=== PATIENT | male | born 1940 | race African-American/Black ===

== ENCOUNTER 2018-03-01 09:36 | Inpatient (IN) | payer MEDICARE, OTHER ==
[2018-03-01] VITALS (7 sets, daily range): BP systolic 113–147; BP diastolic 55–77
[~2018-03-01] VITALS: Ht 190.5 cm; Wt 105.8 kg
[2018-03-01 10:31] LABS: Basophils # (auto) 0 uL; Basophils % (auto) 0.5 % (0.0-2.0); Eosinophils # (auto) 0.1 uL; Eosinophils % (auto) 1.6 % (0.0-7.0); Hematocrit 36.9 % (41.0-53.0); Hemoglobin 12.1 g/dL (13.5-17.5); Lymphocytes # (auto) 0.9 uL; Mean Corpuscular Hemoglobin 30.9 pg (28.0-32.0); Mean Corpuscular Hgb Conc. 32.8 g/dL (32.0-36.0); Mean Corpuscular Volume 93.9 fL (80.0-100.0); Monocytes # (auto) 0.7 uL; Monocytes % (auto) 9.2 % (0.0-12.0); Neutrophils # (auto) 6.2 uL; Neutrophils % (auto) 77.7 % (37.0-80.0); Nucleated Red Blood Cells % 0.1 %; Platelet Count (auto) 177 10^3/uL (140-450); Red Blood Cells 3.93 10^6/uL (4.5-5.90); Red Cell Distribution Width 15.7 % (11.8-14.3); White Blood Cell 7.9 10^3/uL (4.4-10.8)
[2018-03-01 10:58] LABS: Albumin 3.6 g/dL (3.4-5.0); BUN/Creatinine Ratio 4.5; Bilirubin, Total 0.7 mg/dL (0.2-1.0); Calcium 8.7 mg/dL (8.5-10.1); Magnesium 2.4 mg/dL (1.6-2.6); Potassium 3.4 mmol/L (3.5-5.1); Total Protein 8.1 g/dL (6.4-8.2)
[2018-03-01] MEDS ORDERED: PIPERACILLIN-TAZOB 2.25GM 50 ML IV ONE (13:15)
[2018-03-01] MEDS ORDERED: VANCOMYCIN PER PHARMACY 0 MG IV SCH (13:15)
[2018-03-01] MEDS ORDERED: cefTRIAXone 1GM/10ml IVPUSH 10 ML IV ONE (13:15)
[2018-03-01] MEDS ORDERED: MORPHINE SULFATE 8mg/ml INJ SDV IV PRN ×2 (13:15)
[2018-03-01] MEDS ORDERED: HYDROcodone-ACET 5/325MG TAB PO PRN (13:15)
[2018-03-01] MEDS ORDERED: AZITHROMYCIN 500MG/ 250ML 250 ML IV ONE (13:15)
[2018-03-01] MEDS ORDERED: TEMAZEPAM 15 MG CAP PO PRN (13:15)
[2018-03-01] MEDS ORDERED: ALBUTEROL SULF 2.5 MG/0.5ML(0.5%) NEB SOLN NEB PRN (13:15)
[2018-03-01] MEDS ORDERED: PROMETHAZINE HCL 25 MG/ML 1ML IV PRN (13:15)
[2018-03-01] MEDS ORDERED: ACETAMINOPHEN 500 MG TAB PO PRN (13:15)
[2018-03-01] MEDS ORDERED: NITROGLYCERIN 0.4 MG SL TAB SL PRN (13:15)
[2018-03-01] MEDS ORDERED: LORazepam 0.5 MG TAB PO PRN (13:15)
[2018-03-01] MEDS ORDERED: ENALAPRIL MALEATE 2.5 MG TAB PO ONE (13:45)
[2018-03-01] MEDS ORDERED: ASPirin 81 mg TAB PO ONE (13:45)
[2018-03-01] MEDS ORDERED: CARVEDILOL 3.125 MG TAB PO ONE (13:45)
[2018-03-01] MEDS: ENOXAPARIN SOD 30 MG/0.3 ML SYRINGE SC SCH (14:02)
[2018-03-01] MEDS: NITROGLYCERIN 0.2MG/HR TOPICAL PATCH TD SCH (14:03)
[2018-03-01 14:21] LABS: Folate (Folic Acid) 18.9 ng/mL (5.38-24)
[2018-03-01] MEDS ORDERED: FUROSEMIDE 40 MG/4 ML VIAL IV ONE (14:45)
[2018-03-01] MEDS: SODIUM CHLOR 0.9% PF (SALINE LOCK) 10ML VIAL/SYR IV SCH ×2 (15:07→21:35)
[2018-03-01] MEDS ORDERED: VANCOMYCIN 1GM/250ML 250 ML IV ONE (16:30)
[2018-03-01] MEDS: AZITHROMYCIN 500MG/ 250ML 250 ML IV SCH (17:00)
[2018-03-01] MEDS: IPRATROPIUM BROM 0.5 MG/2.5ML INH SOL NEB SCH (18:39)
[2018-03-01] MEDS: ALBUTEROL SULF 2.5 MG/0.5ML(0.5%) NEB SOLN NEB SCH (18:39)
[2018-03-01] MEDS: ACCU-CHEK COMFORT CURVE STRIP VI SCH ×2 (19:03→21:35)
[2018-03-01] MEDS: InsuLIN REG 1unit/0.01ml Soln (100units/ml) SC SCH ×2 (19:03→21:58)
[2018-03-01] MEDS: PIPERACILLIN-TAZOB 2.25GM 50 ML IV SCH (21:35)
[2018-03-01] MEDS: DEXTROSE (50%) 50ML SYRG IV PRN (21:59)
[2018-03-01] MEDS: CARVEDILOL 3.125 MG TAB PO SCH (22:00)
[2018-03-01] MEDS ORDERED: CARVEDILOL 3.125 MG TAB PO SCH (22:00)
[2018-03-02] MEDS: IPRATROPIUM BROM 0.5 MG/2.5ML INH SOL NEB SCH ×4 (00:58→18:30)
[2018-03-02] MEDS: ALBUTEROL SULF 2.5 MG/0.5ML(0.5%) NEB SOLN NEB SCH ×4 (00:58→18:31)
[2018-03-02 05:02] VITALS: BP 119/67
[2018-03-02] MEDS: FUROSEMIDE 40 MG/4 ML VIAL IV SCH ×2 (05:36→17:44)
[2018-03-02] MEDS: SODIUM CHLOR 0.9% PF (SALINE LOCK) 10ML VIAL/SYR IV SCH ×3 (05:37→22:00)
[2018-03-02] MEDS: InsuLIN REG 1unit/0.01ml Soln (100units/ml) SC SCH ×4 (06:38→22:00)
[2018-03-02 06:39] LABS: Basophils # (auto) 0.1 uL; Basophils % (auto) 0.7 % (0.0-2.0); Eosinophils # (auto) 0.2 uL; Eosinophils % (auto) 2.3 % (0.0-7.0); Hematocrit 33.5 % (41.0-53.0); Hemoglobin 11.2 g/dL (13.5-17.5); Lymphocytes # (auto) 1.7 uL; Lymphocytes % (auto) 22.4 % (10.0-50.0); Mean Corpuscular Hemoglobin 31.7 pg (28.0-32.0); Mean Corpuscular Hgb Conc. 33.5 g/dL (32.0-36.0); Mean Corpuscular Volume 94.7 fL (80.0-100.0); Monocytes # (auto) 0.8 uL; Neutrophils # (auto) 4.7 uL; Neutrophils % (auto) 63.6 % (37.0-80.0); Nucleated Red Blood Cells % 0.2 %; Platelet Count (auto) 163 10^3/uL (140-450); Red Blood Cells 3.53 10^6/uL (4.5-5.90); Red Cell Distribution Width 15.2 % (11.8-14.3); White Blood Cell 7.4 10^3/uL (4.4-10.8)
[2018-03-02] MEDS: DEXTROSE (50%) 50ML SYRG IV PRN (06:39)
[2018-03-02] MEDS: ACCU-CHEK COMFORT CURVE STRIP VI SCH ×4 (06:39→22:30)
[2018-03-02 06:53] LABS: BUN/Creatinine Ratio 4.3; Bilirubin, Total 0.5 mg/dL (0.2-1.0); Calcium 8.7 mg/dL (8.5-10.1); Potassium 3.7 mmol/L (3.5-5.1); Total Protein 6.8 g/dL (6.4-8.2)
[2018-03-02 08:47] VITALS: BP 150/72
[2018-03-02] MEDS ORDERED: VANCOMYCIN 750 MG in D5W 5% 250 ML IV ONE (10:00)
[2018-03-02] MEDS ORDERED: ENALAPRIL MALEATE 2.5 MG TAB PO SCH (10:00)
[2018-03-02] MEDS: NITROGLYCERIN 0.2MG/HR TOPICAL PATCH TD SCH (10:00)
[2018-03-02] MEDS: PIPERACILLIN-TAZOB 2.25GM 50 ML IV SCH ×2 (10:00→23:36)
[2018-03-02] MEDS ORDERED: ASPirin 81 mg TAB PO SCH (10:00)
[2018-03-02] MEDS: ENOXAPARIN SOD 30 MG/0.3 ML SYRINGE SC SCH (10:19)
[2018-03-02] MEDS: ENALAPRIL MALEATE 2.5 MG TAB PO SCH (10:21)
[2018-03-02] MEDS: ASPirin 81 mg TAB PO SCH (10:21)
[2018-03-02] MEDS: CARVEDILOL 3.125 MG TAB PO SCH ×2 (10:21→22:29)
[2018-03-02] MEDS: AZITHROMYCIN 500MG/ 250ML 250 ML IV SCH (10:22)
[2018-03-02 12:30] VITALS: BP 102/42
[2018-03-02 17:02] VITALS: BP 163/78
[2018-03-02 22:00] VITALS: BP 149/68
[2018-03-03] MEDS: IPRATROPIUM BROM 0.5 MG/2.5ML INH SOL NEB SCH ×4 (00:28→20:10)
[2018-03-03] MEDS: ALBUTEROL SULF 2.5 MG/0.5ML(0.5%) NEB SOLN NEB SCH ×4 (00:28→20:10)
[2018-03-03 04:47] VITALS: BP 99/54
[2018-03-03 05:28] LABS: Basophils # (auto) 0.1 uL; Basophils % (auto) 0.7 % (0.0-2.0); Eosinophils # (auto) 0.2 uL; Eosinophils % (auto) 2.7 % (0.0-7.0); Hematocrit 32.6 % (41.0-53.0); Lymphocytes # (auto) 1.7 uL; Lymphocytes % (auto) 18.1 % (10.0-50.0); Mean Corpuscular Hemoglobin 31.6 pg (28.0-32.0); Mean Corpuscular Hgb Conc. 33.7 g/dL (32.0-36.0); Mean Corpuscular Volume 93.7 fL (80.0-100.0); Monocytes # (auto) 0.7 uL; Monocytes % (auto) 8.2 % (0.0-12.0); Neutrophils # (auto) 6.4 uL; Neutrophils % (auto) 70.3 % (37.0-80.0); Platelet Count (auto) 187 10^3/uL (140-450); Red Blood Cells 3.48 10^6/uL (4.5-5.90); Red Cell Distribution Width 15.2 % (11.8-14.3); White Blood Cell 9.1 10^3/uL (4.4-10.8)
[2018-03-03] MEDS: SODIUM CHLOR 0.9% PF (SALINE LOCK) 10ML VIAL/SYR IV SCH ×3 (05:41→22:00)
[2018-03-03] MEDS: FUROSEMIDE 40 MG/4 ML VIAL IV SCH ×2 (05:41→17:58)
[2018-03-03 05:46] LABS: INR 1.01 (0.9-1.15); Partial Thromboplastin Time 35.6 sec (23.78-33.04); Prothrombin Time 10.8 sec (9.27-12.13)
[2018-03-03 05:47] LABS: Calcium 8.3 mg/dL (8.5-10.1); Magnesium 2.5 mg/dL (1.6-2.6)
[2018-03-03] MEDS: InsuLIN REG 1unit/0.01ml Soln (100units/ml) SC SCH ×4 (06:07→22:30)
[2018-03-03] MEDS: ACCU-CHEK COMFORT CURVE STRIP VI SCH ×4 (06:07→22:00)
[2018-03-03 08:23] VITALS: BP 103/45
[2018-03-03] MEDS: NITROGLYCERIN 0.2MG/HR TOPICAL PATCH TD SCH (10:00)
[2018-03-03] MEDS: ENALAPRIL MALEATE 2.5 MG TAB PO SCH (10:00)
[2018-03-03] MEDS: PIPERACILLIN-TAZOB 2.25GM 50 ML IV SCH ×2 (11:31→22:00)
[2018-03-03] MEDS: ASPirin 81 mg TAB PO SCH (11:36)
[2018-03-03] MEDS: CARVEDILOL 3.125 MG TAB PO SCH ×2 (11:37→22:00)
[2018-03-03] MEDS: ENOXAPARIN SOD 30 MG/0.3 ML SYRINGE SC SCH (11:37)
[2018-03-03 11:49] VITALS: BP 106/67
[2018-03-03] MEDS ORDERED: VANCOMYCIN 750 MG in D5W 5% 250 ML IV ONE ×2 (12:00→18:00)
[2018-03-03] MEDS: AZITHROMYCIN 500MG/ 250ML 250 ML IV SCH (13:38)
[2018-03-03 16:59] VITALS: BP 107/44
[2018-03-03 22:00] VITALS: BP 156/79
[2018-03-04] MEDS: ALBUTEROL SULF 2.5 MG/0.5ML(0.5%) NEB SOLN NEB SCH ×3 (00:54→18:33)
[2018-03-04] MEDS: IPRATROPIUM BROM 0.5 MG/2.5ML INH SOL NEB SCH ×3 (00:54→18:34)
[2018-03-04 05:00] VITALS: BP 149/71
[2018-03-04 05:55] LABS: Basophils # (auto) 0.1 uL; Basophils % (auto) 0.8 % (0.0-2.0); Eosinophils # (auto) 0.3 uL; Eosinophils % (auto) 3.4 % (0.0-7.0); Hematocrit 33.9 % (41.0-53.0); Hemoglobin 11.4 g/dL (13.5-17.5); Lymphocytes # (auto) 1.4 uL; Lymphocytes % (auto) 15.6 % (10.0-50.0); Mean Corpuscular Hemoglobin 31.7 pg (28.0-32.0); Mean Corpuscular Hgb Conc. 33.5 g/dL (32.0-36.0); Mean Corpuscular Volume 94.6 fL (80.0-100.0); Monocytes # (auto) 0.7 uL; Monocytes % (auto) 7.9 % (0.0-12.0); Neutrophils # (auto) 6.5 uL; Neutrophils % (auto) 72.3 % (37.0-80.0); Platelet Count (auto) 180 10^3/uL (140-450); Red Blood Cells 3.59 10^6/uL (4.5-5.90); Red Cell Distribution Width 14.5 % (11.8-14.3)
[2018-03-04] MEDS: FUROSEMIDE 40 MG/4 ML VIAL IV SCH ×2 (06:00→17:32)
[2018-03-04] MEDS: SODIUM CHLOR 0.9% PF (SALINE LOCK) 10ML VIAL/SYR IV SCH ×2 (06:00→14:36)
[2018-03-04 06:07] LABS: BUN/Creatinine Ratio 4.8; Calcium 8.2 mg/dL (8.5-10.1); Potassium 3.7 mmol/L (3.5-5.1)
[2018-03-04] MEDS: InsuLIN REG 1unit/0.01ml Soln (100units/ml) SC SCH ×3 (06:59→17:33)
[2018-03-04] MEDS: ACCU-CHEK COMFORT CURVE STRIP VI SCH ×3 (07:00→17:33)
[2018-03-04 08:07] VITALS: BP 157/69
[2018-03-04] MEDS: AZITHROMYCIN 500MG/ 250ML 250 ML IV SCH (10:49)
[2018-03-04] MEDS: ENALAPRIL MALEATE 2.5 MG TAB PO SCH (10:49)
[2018-03-04] MEDS: NITROGLYCERIN 0.2MG/HR TOPICAL PATCH TD SCH (10:50)
[2018-03-04] MEDS: ASPirin 81 mg TAB PO SCH (10:50)
[2018-03-04] MEDS: CARVEDILOL 3.125 MG TAB PO SCH (10:50)
[2018-03-04] MEDS: ENOXAPARIN SOD 30 MG/0.3 ML SYRINGE SC SCH (10:51)
[2018-03-04 12:01] VITALS: BP 138/67
[2018-03-04] MEDS: PIPERACILLIN-TAZOB 2.25GM 50 ML IV SCH (12:56)
[2018-03-04 16:14] VITALS: BP 131/70
== END 2018-03-04 20:15 | disposition home or self-care (01) | DRG 871 ==
LOC: ER 09:36 → TELE 09:37 → TELE-CENTR 20:15
PROVIDERS: ADMIT Internal Medicine; ATTEND Internal Medicine Geriatric Medicine
PROC: 5A09357 Assistance with Respiratory Ventilation, Less than 24 Consecutive Hours, Continuous Positive Airway Pressure (ICD-10-PCS; principal; 2018-03-01)
PROC: 5A1D70Z Performance of Urinary Filtration, Intermittent, Less than 6 Hours Per Day (ICD-10-PCS; 2018-03-03)
DX: A41.9 Sepsis, unspecified organism (principal); G93.41 Metabolic encephalopathy; J96.01 Acute respiratory failure with hypoxia; I13.2 Hypertensive heart and chronic kidney disease with heart failure and with stage 5 chronic kidney disease, or end stage renal disease; J18.9 Pneumonia, unspecified organism; E87.2 Acidosis; E11.22 Type 2 diabetes mellitus with diabetic chronic kidney disease; J44.0 Chronic obstructive pulmonary disease with (acute) lower respiratory infection; I50.9 Heart failure, unspecified; N18.6 End stage renal disease; E66.9 Obesity, unspecified; Z95.0 Presence of cardiac pacemaker; Z99.2 Dependence on renal dialysis; Z68.29 Body mass index [BMI] 29.0-29.9, adult; Z79.82 Long term (current) use of aspirin
CPT/HCPCS: 36415; 36600; 70450; 71046; 80048; 80053; 80202; 82550; 82607; 82746; 82805; 82962; 83036; 83605; 83735; 83880; 84443; 84484; 85025; 85610; 85652; 85730; 87040; 87077; 87186; 90935; 93005; 93306; 93886; 93970; 94640; 94660; 95819; 96365; 96367; 96372; 96375; 97163; J1815; J2543; J7060

== ENCOUNTER 2018-03-05 08:30 | Inpatient (IN) | payer OTHER ==
[~2018-03-05] VITALS: Ht 190.5 cm; Wt 99.8 kg
[2018-03-05] MEDS ORDERED: SODIUM CHLORIDE 0.9% 1,000 ML IV ONE (08:49)
[2018-03-05 09:18] VITALS: BP 134/64
[2018-03-05 09:20] LABS: Basophils # (auto) 0 uL; Basophils % (auto) 0.4 % (0.0-2.0); Eosinophils # (auto) 0.1 uL; Eosinophils % (auto) 1.4 % (0.0-7.0); Hematocrit 33.8 % (41.0-53.0); Hemoglobin 11.3 g/dL (13.5-17.5); Lymphocytes # (auto) 0.9 uL; Lymphocytes % (auto) 9.7 % (10.0-50.0); Mean Corpuscular Hemoglobin 31.6 pg (28.0-32.0); Mean Corpuscular Hgb Conc. 33.5 g/dL (32.0-36.0); Mean Corpuscular Volume 94.4 fL (80.0-100.0); Monocytes # (auto) 0.6 uL; Monocytes % (auto) 6.8 % (0.0-12.0); Neutrophils # (auto) 7.5 uL; Neutrophils % (auto) 81.7 % (37.0-80.0); Platelet Count (auto) 170 10^3/uL (140-450); Red Blood Cells 3.58 10^6/uL (4.5-5.90); Red Cell Distribution Width 14.7 % (11.8-14.3); White Blood Cell 9.2 10^3/uL (4.4-10.8)
[2018-03-05 09:31] LABS: INR 0.97 (0.9-1.15); Prothrombin Time 10.4 sec (9.27-12.13)
[2018-03-05 09:45] LABS: Albumin 3.2 g/dL (3.4-5.0); BUN/Creatinine Ratio 4.3; Calcium 8.4 mg/dL (8.5-10.1); Magnesium 2.2 mg/dL (1.6-2.6); Potassium 3.7 mmol/L (3.5-5.1)
[2018-03-05 09:49] LABS: Bilirubin, Total 0.6 mg/dL (0.2-1.0); Total Protein 7.8 g/dL (6.4-8.2)
[2018-03-05 09:50] LABS: Urine Bacteria NONE SEEN /hpf (None Seen); Urine Blood 1+ /uL (Negative); Urine Hyaline Cast FEW /lpf (0 - 2); Urine Specific Gravity 1.018 (1.001-1.035); Urine WBC 4 /hpf (0 - 3)
[2018-03-05 10:04] LABS: Alcohol, Urine < 3.0 mg/dL (0-5); Amphetamine Screen, Urine NEGATIVE (NEGATIVE); Barbiturate Scree,Urine NEGATIVE (NEGATIVE); Benzodiazephine Screen, Urine NEGATIVE (NEGATIVE); Cannabinoid Screen, Urine NEGATIVE (NEGATIVE); Cocaine Screen, Urine NEGATIVE (NEGATIVE); Opiate Scree,Urine NEGATIVE (NEGATIVE); Phencyclidine Screen, Urine NEGATIVE (NEGATIVE)
[2018-03-05 12:30] VITALS: BP 85/52
[2018-03-05] MEDS ORDERED: SODIUM CHLORIDE 0.9% 1,000 ML IV SCH (14:57)
[2018-03-05] MEDS ORDERED: DOCUSATE SOD 100 MG CAP PO PRN (15:00)
[2018-03-05] MEDS ORDERED: MORPHINE SULFATE 8mg/ml INJ SDV IV PRN ×2 (15:00)
[2018-03-05] MEDS ORDERED: NITROGLYCERIN 0.4 MG SL TAB SL PRN (15:00)
[2018-03-05] MEDS ORDERED: LACTULOSE 20Gm/30ML SOLN PO PRN (15:00)
[2018-03-05] MEDS ORDERED: ONDANSETRON HCL 4 MG/2 ML VIAL IV PRN (15:00)
[2018-03-05] MEDS ORDERED: HYDROcodone-ACET 5/325MG TAB PO PRN (15:00)
[2018-03-05] MEDS ORDERED: ACETAMINOPHEN 325 MG TAB PO PRN (15:00)
[2018-03-05] MEDS ORDERED: DEXTROSE (50%) 50ML SYRG IV PRN (15:15)
[2018-03-05] MEDS ORDERED: SODIUM CHL 0.9% 1000 ML BAG XX ONE (17:00)
[2018-03-05] MEDS: NOREPINEPHRINE 8 MG/250ML KIT 250 ML IV SCH (17:12)
[2018-03-05] MEDS: ACCU-CHEK COMFORT CURVE STRIP VI SCH ×2 (17:44→22:00)
[2018-03-05] MEDS: InsuLIN REG 1unit/0.01ml Soln (100units/ml) SC SCH ×2 (17:48→22:00)
[2018-03-05] MEDS: glipiZIDE 5 MG TAB PO SCH (17:48)
[2018-03-05] MEDS: SEVELAMER 800 MG TAB PO SCH (17:50)
[2018-03-05 18:16] VITALS: BP 108/56
[2018-03-05 18:52] VITALS: BP 110/56
[2018-03-05] MEDS: OMEGA PO SCH (22:00)
[2018-03-05] MEDS: AZO CRANBERRY PO SCH (22:00)
[2018-03-05] MEDS: ATORVASTATIN 20 MG TAB PO SCH (22:00)
[2018-03-06] MEDS ORDERED: TEMAZEPAM 15 MG CAP PO ONE (00:15)
[2018-03-06 02:25] VITALS: BP 151/97
[2018-03-06 04:24] VITALS: BP 118/61
[2018-03-06 06:18] VITALS: BP 96/56
[2018-03-06 06:44] LABS: Basophils # (auto) 0 uL; Basophils % (auto) 0.6 % (0.0-2.0); Eosinophils # (auto) 0.1 uL; Eosinophils % (auto) 1.5 % (0.0-7.0); Hematocrit 29.5 % (41.0-53.0); Hemoglobin 9.9 g/dL (13.5-17.5); Lymphocytes # (auto) 1.6 uL; Lymphocytes % (auto) 17.7 % (10.0-50.0); Mean Corpuscular Hemoglobin 32.1 pg (28.0-32.0); Mean Corpuscular Hgb Conc. 33.6 g/dL (32.0-36.0); Mean Corpuscular Volume 95.7 fL (80.0-100.0); Monocytes # (auto) 1.1 uL; Monocytes % (auto) 12.4 % (0.0-12.0); Neutrophils # (auto) 6.1 uL; Neutrophils % (auto) 67.8 % (37.0-80.0); Nucleated Red Blood Cells % 0.1 %; Platelet Count (auto) 166 10^3/uL (140-450); Red Blood Cells 3.08 10^6/uL (4.5-5.90); Red Cell Distribution Width 14.9 % (11.8-14.3); White Blood Cell 8.9 10^3/uL (4.4-10.8)
[2018-03-06 06:56] LABS: Albumin 2.5 g/dL (3.4-5.0); BUN/Creatinine Ratio 4.4; Potassium 4.2 mmol/L (3.5-5.1)
[2018-03-06 06:59] LABS: Bilirubin, Total 0.5 mg/dL (0.2-1.0); Total Protein 6.5 g/dL (6.4-8.2)
[2018-03-06] MEDS: ACCU-CHEK COMFORT CURVE STRIP VI SCH ×4 (07:57→23:18)
[2018-03-06] MEDS: InsuLIN REG 1unit/0.01ml Soln (100units/ml) SC SCH ×4 (07:58→23:17)
[2018-03-06] MEDS: SEVELAMER 800 MG TAB PO SCH ×3 (08:30→18:28)
[2018-03-06] MEDS: glipiZIDE 5 MG TAB PO SCH ×2 (08:30→18:28)
[2018-03-06] MEDS ORDERED: FUROSEMIDE 40 MG TAB PO SCH (10:00)
[2018-03-06] MEDS: OMEGA PO SCH ×2 (10:00→23:16)
[2018-03-06] MEDS ORDERED: amLODIPine BESYLATE 5 MG TAB PO SCH (10:00)
[2018-03-06] MEDS: AZO CRANBERRY PO SCH ×2 (10:00→23:16)
[2018-03-06] MEDS: [UNRECOGNIZED DRUG - OTHER] PO SCH (10:00)
[2018-03-06] MEDS: CLOPIDOGREL BISULFATE 75 MG TAB PO SCH (10:30)
[2018-03-06] MEDS: ASPirin-EC 81 mg tab PO SCH (10:30)
[2018-03-06] MEDS: AMIODARONE HCL 200 MG TAB PO SCH (10:30)
[2018-03-06] MEDS: FAMOTIDINE 20 MG TAB PO SCH (10:30)
[2018-03-06] MEDS: MULTIPLE VITAMIN TAB PO SCH (10:30)
[2018-03-06] MEDS: CHOLECALCIFEROL (VITD3) 1,000 UNIT TAB PO SCH (10:30)
[2018-03-06] MEDS: B-COMPLEX W/ C & FOLIC ACID(NEPHROVITE TAB) PO SCH (10:30)
[2018-03-06] MEDS ORDERED: VANCOMYCIN PER PHARMACY 0 MG IV SCH (12:30)
[2018-03-06] MEDS ORDERED: VANCOMYCIN 1GM/250ML 250 ML IV ONE (12:45)
[2018-03-06] MEDS ORDERED: EPOETIN ALFA 10,000 UNIT/1 ML VIAL IV ONE (14:45)
[2018-03-06] MEDS ORDERED: HEPARIN SODIUM (PORCINE) 5000 UNITS/ML 1ML VIAL IV ONE (14:45)
[2018-03-06] MEDS: NOREPINEPHRINE 8 MG/250ML KIT 250 ML IV SCH (18:29)
[2018-03-06 18:35] VITALS: BP 150/70
[2018-03-06] MEDS: ATORVASTATIN 20 MG TAB PO SCH (23:17)
[2018-03-07 06:34] LABS: BUN/Creatinine Ratio 4.2; Calcium 8.6 mg/dL (8.5-10.1); Magnesium 2.7 mg/dL (1.6-2.6); Potassium 3.4 mmol/L (3.5-5.1)
[2018-03-07] MEDS: glipiZIDE 5 MG TAB PO SCH (06:58)
[2018-03-07] MEDS: ACCU-CHEK COMFORT CURVE STRIP VI SCH ×2 (06:59→11:59)
[2018-03-07] MEDS: InsuLIN REG 1unit/0.01ml Soln (100units/ml) SC SCH ×2 (06:59→11:30)
[2018-03-07 08:10] VITALS: BP 147/65
[2018-03-07] MEDS: SEVELAMER 800 MG TAB PO SCH ×2 (08:41→12:00)
[2018-03-07] MEDS: B-COMPLEX W/ C & FOLIC ACID(NEPHROVITE TAB) PO SCH (10:00)
[2018-03-07] MEDS: AMIODARONE HCL 200 MG TAB PO SCH (10:00)
[2018-03-07] MEDS: [UNRECOGNIZED DRUG - OTHER] PO SCH (10:00)
[2018-03-07] MEDS: CHOLECALCIFEROL (VITD3) 1,000 UNIT TAB PO SCH (10:00)
[2018-03-07] MEDS: CLOPIDOGREL BISULFATE 75 MG TAB PO SCH (10:00)
[2018-03-07] MEDS ORDERED: AMIODARONE HCL 150 MG in D5W 5% 100 ML IV ONE (10:30)
[2018-03-07] MEDS: AZO CRANBERRY PO SCH (10:36)
[2018-03-07] MEDS: OMEGA PO SCH (10:37)
[2018-03-07] MEDS: ASPirin-EC 81 mg tab PO SCH (10:38)
[2018-03-07] MEDS: MULTIPLE VITAMIN TAB PO SCH (10:38)
[2018-03-07 10:39] VITALS: BP 142/68
[2018-03-07] MEDS: FAMOTIDINE 20 MG TAB PO SCH (10:39)
[2018-03-07 12:00] VITALS: BP 134/65
[2018-03-07] MEDS ORDERED: VANCOMYCIN 1GM/250ML 250 ML IV ONE (13:00)
[2018-03-07 13:43] VITALS: BP 100/46
== END 2018-03-07 14:24 | disposition short-term general hospital (02) | DRG 314 ==
LOC: EDBD 08:30 → ER 08:33 → OVERFLOW 08:34
PROVIDERS: ADMIT Internal Medicine; ATTEND Family Medicine
PROC: 5A09357 Assistance with Respiratory Ventilation, Less than 24 Consecutive Hours, Continuous Positive Airway Pressure (ICD-10-PCS; principal; 2018-03-05)
PROC: 5A1D70Z Performance of Urinary Filtration, Intermittent, Less than 6 Hours Per Day (ICD-10-PCS; 2018-03-06)
PROC: 5A09357 Assistance with Respiratory Ventilation, Less than 24 Consecutive Hours, Continuous Positive Airway Pressure (ICD-10-PCS; 2018-03-07)
DX: I95.9 Hypotension, unspecified (principal); J96.92 Respiratory failure, unspecified with hypercapnia; G93.41 Metabolic encephalopathy; J96.91 Respiratory failure, unspecified with hypoxia; I13.2 Hypertensive heart and chronic kidney disease with heart failure and with stage 5 chronic kidney disease, or end stage renal disease; E44.0 Moderate protein-calorie malnutrition; I50.43 Acute on chronic combined systolic (congestive) and diastolic (congestive) heart failure; N18.6 End stage renal disease; E87.2 Acidosis; I69.354 Hemiplegia and hemiparesis following cerebral infarction affecting left non-dominant side; N25.81 Secondary hyperparathyroidism of renal origin; N39.0 Urinary tract infection, site not specified; E11.21 Type 2 diabetes mellitus with diabetic nephropathy; E83.51 Hypocalcemia; E11.22 Type 2 diabetes mellitus with diabetic chronic kidney disease; D63.8 Anemia in other chronic diseases classified elsewhere; I70.90 Unspecified atherosclerosis; I44.7 Left bundle-branch block, unspecified; J44.9 Chronic obstructive pulmonary disease, unspecified; Z95.0 Presence of cardiac pacemaker; Z99.2 Dependence on renal dialysis; Z79.899 Other long term (current) drug therapy; Z68.27 Body mass index [BMI] 27.0-27.9, adult
CPT/HCPCS: 36415; 36600; 51702; 70450; 71045; 80048; 80053; 80202; 80307; 81001; 82533; 82805; 82962; 83036; 83605; 83735; 84443; 84484; 85025; 85610; 85730; 87040; 90935; 94660; 94761; 96360; G0378; J0885; J1815; J7060